=== PATIENT | female | born 1965 | race Caucasian/White ===

== ENCOUNTER 2018-12-07 21:36 | Inpatient (IN) | payer MEDICAID, SELFPAY ==
[~2018-12-07] VITALS: Ht 160 cm; Wt 99.9 kg
[2018-12-07] MEDS ORDERED: OMNIPAQUE 350 MG/ML, 100ML BOTTLE ONE (22:00)
[2018-12-07 22:21] LABS: BASOPHILS % (AUTO) 0 % (0-1); EOSINOPHILS # (AUTO) 0.05 x10^3/uL (0-0.4); EOSINOPHILS % (AUTO) 1 % (1-7); LYMPHOCYTES # (AUTO) 1.64 x10^3/uL (1-3.4); LYMPHOCYTES % (AUTO) 18 % (22-44); MD NO; MEAN CORPUSCULAR HGB CONC 33.5 g/dL (32.4-35.8); MEAN CORPUSCULAR VOLUME 86.6 fL (80-100); MEAN PLATELET VOLUME 7.8 fL (7.4-10.4); MONOCYTES # (AUTO) 0.74 x10^3/uL (0.2-0.8); MONOCYTES % (AUTO) 8 % (2-9); NEUTROPHILS # (AUTO) 6.52 x10^3/uL (1.8-6.8); NEUTROPHILS % (AUTO) 73 % (42-75); PLATELET COUNT 342 x10^3/uL (130-400); RED CELL DISTRIBUTION WIDTH 19.2 % (9.6-15.2)
[2018-12-07 22:32] LABS: ALANINE AMINOTRANSFERASE 28 U/L (12-78); ALBUMIN 2.7 g/dL (3.4-5.0); ANION GAP 12 mmol/L (5-15); CALCIUM 8.6 mg/dL (8.5-10.1); CHLORIDE 103 mmol/L (98-107); CREATININE 0.61 mg/dL (0.55-1.02)
[2018-12-07 22:37] LABS: ALKALINE PHOSPHATASE 113 U/L (45-117); BILIRUBIN,TOTAL 0.5 mg/dL (0.2-1.0); TOTAL PROTEIN 7.1 g/dL (6.4-8.2); TROPONIN I < 0.015 ng/mL (0.000-0.045)
--- NOTE | 2018-12-07 22:52 | NUR ---
PT IN CT.
[2018-12-08] MEDS ORDERED: ONDANSETRON 2MG/ML, 2ML IVPush PRN ×2 (00:30)
[2018-12-08] MEDS: HEPARIN 5,000 UNITS/ML, 1ML SQ SCH ×3 (00:30→16:08)
[2018-12-08] MEDS ORDERED: KETOROLAC 30 MG/1 ML IV PRN (00:30)
[2018-12-08] MEDS ORDERED: HYDROmorphone 1 MG/ML, 1ML IVPush PRN (00:30)
[2018-12-08] MEDS ORDERED: POLYETHYLENE GLYCOL 17 GM PACKET PO PRN (00:30)
[2018-12-08] MEDS ORDERED: HYDROmorphone 2 MG/ML, 1ML IVPush PRN (00:30)
[2018-12-08] MEDS ORDERED: BISACODYL 10 MG SUPP PR PRN (00:30)
--- NOTE | 2018-12-08 00:39 | NUR ---
REPORT GIVEN TO NILDA VALLADARES
[2018-12-08 00:52] VITALS: BP 105/73
[2018-12-08 01:00] VITALS: BP 105/73
[2018-12-08] MEDS: NICOTINE 7 MG/24 HR PATCH.TD24 TD SCH (01:33)
[2018-12-08] MEDS ORDERED: TOPI50TA8 PO (03:05)
[2018-12-08] MEDS ORDERED: MEMA10TA20 PO (03:06)
[2018-12-08] MEDS ORDERED: ASPI1TAB31 PO (03:08)
[2018-12-08 07:38] VITALS: BP 97/64
[2018-12-08] MEDS: SENNA/DOCUSATE TABLET PO SCH (09:00)
[2018-12-08] MEDS: ACETAMINOPHEN 325 MG TABLET PO PRN ×2 (09:13→19:57)
[2018-12-08] MEDS: SODIUM CHLORIDE FLUSH 10ML SYR IVF SCH ×2 (09:14→19:57)
[2018-12-08 13:00] VITALS: BP 94/63
[2018-12-08 18:40] VITALS: BP 97/67
[2018-12-08] MEDS: MEMANTINE 10MG TABLET PO SCH ×2 (19:57→21:00)
[2018-12-08] MEDS: TOPIRAMATE 25 MG TABLET PO SCH ×2 (19:57→21:00)
[2018-12-09 00:05] VITALS: BP 96/53
[2018-12-09 00:07] VITALS: BP 118/80
[2018-12-09] MEDS: HEPARIN 5,000 UNITS/ML, 1ML SQ SCH ×4 (00:30→21:32)
[2018-12-09] MEDS: NICOTINE 7 MG/24 HR PATCH.TD24 TD SCH (00:42)
[2018-12-09] MEDS: ACETAMINOPHEN 325 MG TABLET PO PRN ×3 (00:42→21:48)
[2018-12-09] MEDS: TOPIRAMATE 25 MG TABLET PO SCH ×2 (08:23→21:31)
[2018-12-09] MEDS: MEMANTINE 10MG TABLET PO SCH ×2 (08:23→21:31)
[2018-12-09] MEDS: SODIUM CHLORIDE FLUSH 10ML SYR IVF SCH ×2 (08:24→21:00)
[2018-12-09] MEDS: SENNA/DOCUSATE TABLET PO SCH (08:24)
[2018-12-09] MEDS: FENTANYL 12 MCG PATCH TD SCH (11:06)
[2018-12-09 13:41] VITALS: BP 103/63
[2018-12-09 18:52] VITALS: BP 123/80
[2018-12-10] MEDS: NICOTINE 7 MG/24 HR PATCH.TD24 TD SCH (00:40)
[2018-12-10 04:21] VITALS: BP 114/74
[2018-12-10 05:13] LABS: CREATININE 0.58 mg/dL (0.55-1.02)
[2018-12-10] MEDS: HEPARIN 5,000 UNITS/ML, 1ML SQ SCH ×2 (09:06→16:16)
[2018-12-10] MEDS: SENNA/DOCUSATE TABLET PO SCH (09:10)
[2018-12-10] MEDS: SODIUM CHLORIDE FLUSH 10ML SYR IVF SCH ×2 (09:10→20:25)
[2018-12-10 09:18] VITALS: BP 113/81
[2018-12-10] MEDS: MEMANTINE 10MG TABLET PO SCH ×2 (09:23→20:21)
[2018-12-10] MEDS: ACETAMINOPHEN 325 MG TABLET PO PRN ×2 (09:25→20:21)
[2018-12-10] MEDS: TOPIRAMATE 25 MG TABLET PO SCH ×2 (09:25→20:21)
[2018-12-10] MEDS ORDERED: LIDOCAINE 1%, 20ML ONE ×2 (11:10→11:12)
[2018-12-10] MEDS ORDERED: LIDOCAINE 1%-EPI 1:100K, 30ML ONE (11:10)
[2018-12-10] MEDS ORDERED: SODIUM BICARBONATE 4.0%, 5ML ONE (11:10)
[2018-12-10 14:22] VITALS: BP 118/78
[2018-12-10 18:53] VITALS: BP 104/67
[2018-12-11] MEDS: HEPARIN 5,000 UNITS/ML, 1ML SQ SCH ×3 (00:30→16:47)
[2018-12-11] MEDS: NICOTINE 7 MG/24 HR PATCH.TD24 TD SCH (01:07)
[2018-12-11 03:14] VITALS: BP 107/71
[2018-12-11 05:41] LABS: BASOPHILS # (AUTO) 0.01 x10^3/uL (0-0.1); BASOPHILS % (AUTO) 0 % (0-1); EOSINOPHILS # (AUTO) 0.05 x10^3/uL (0-0.4); EOSINOPHILS % (AUTO) 1 % (1-7); LYMPHOCYTES % (AUTO) 17 % (22-44); MD NO; MEAN CORPUSCULAR HEMOGLOBIN 28.9 pg (27.0-34.8); MEAN CORPUSCULAR HGB CONC 33.2 g/dL (32.4-35.8); MEAN CORPUSCULAR VOLUME 87.1 fL (80-100); MEAN PLATELET VOLUME 7.8 fL (7.4-10.4); MONOCYTES # (AUTO) 0.59 x10^3/uL (0.2-0.8); MONOCYTES % (AUTO) 8 % (2-9); NEUTROPHILS # (AUTO) 5.49 x10^3/uL (1.8-6.8); NEUTROPHILS % (AUTO) 74 % (42-75); PLATELET COUNT 315 x10^3/uL (130-400); RED BLOOD COUNT 3.92 x10^6/uL (3.82-5.3); RED CELL DISTRIBUTION WIDTH 19.4 % (9.6-15.2)
[2018-12-11 05:49] LABS: ALANINE AMINOTRANSFERASE 23 U/L (12-78); ALBUMIN 2.5 g/dL (3.4-5.0); ANION GAP 8 mmol/L (5-15); CALCIUM 8.7 mg/dL (8.5-10.1); CHLORIDE 102 mmol/L (98-107)
[2018-12-11 05:54] LABS: ALKALINE PHOSPHATASE 127 U/L (45-117); BILIRUBIN,TOTAL 0.5 mg/dL (0.2-1.0); CREATININE 0.63 mg/dL (0.55-1.02); TOTAL PROTEIN 6.8 g/dL (6.4-8.2)
[2018-12-11 07:10] VITALS: BP 105/62
[2018-12-11] MEDS: TOPIRAMATE 25 MG TABLET PO SCH ×2 (09:00→20:59)
[2018-12-11] MEDS: MEMANTINE 10MG TABLET PO SCH ×2 (09:00→20:59)
[2018-12-11] MEDS: SODIUM CHLORIDE FLUSH 10ML SYR IVF SCH ×2 (09:00→21:00)
[2018-12-11] MEDS: SENNA/DOCUSATE TABLET PO SCH (09:00)
[2018-12-11] MEDS ORDERED: DIPHENHYDRAMINE 50 MG/ML, 1ML IVPush ONE (11:00)
[2018-12-11] MEDS ORDERED: DEXAMETHASONE IVPB ONE (11:00)
[2018-12-11] MEDS ORDERED: SODIUM CHLORIDE 0.9% IVPB ONE (11:00)
[2018-12-11] MEDS ORDERED: ACETAMINOPHEN 325 MG TABLET PO ONE (11:00)
[2018-12-11] MEDS ORDERED: DIPHENHYDRAMINE 50 MG/ML, 1ML IVPush PRN (11:00)
[2018-12-11] MEDS ORDERED: ONDANSETRON IVPB ONE (11:00)
[2018-12-11] MEDS ORDERED: FAMOTIDINE 20 MG/2 ML IVPush ONE (11:00)
[2018-12-11] MEDS ORDERED: SODIUM CHLORIDE 0.9% IV ONE ×2 (11:30→12:30)
[2018-12-11] MEDS ORDERED: CARBOPLATIN IV ONE (11:30)
[2018-12-11] MEDS ORDERED: PACLITAXEL IV ONE (12:30)
[2018-12-11] MEDS ORDERED: FILTER 0.22 MICRON IV ONE (12:30)
[2018-12-11 15:47] VITALS: BP 115/78
[2018-12-11 18:55] VITALS: BP 111/68
[2018-12-11] MEDS: ACETAMINOPHEN 325 MG TABLET PO PRN (20:59)
[2018-12-12] MEDS: HEPARIN 5,000 UNITS/ML, 1ML SQ SCH ×3 (00:30→15:40)
[2018-12-12 04:07] VITALS: BP 109/68
[2018-12-12 05:13] LABS: ALBUMIN 2.4 g/dL (3.4-5.0); ANION GAP 7 mmol/L (5-15); CALCIUM 8.3 mg/dL (8.5-10.1); CHLORIDE 105 mmol/L (98-107)
[2018-12-12 05:14] LABS: CREATININE 0.59 mg/dL (0.55-1.02)
[2018-12-12] MEDS: NICOTINE 7 MG/24 HR PATCH.TD24 TD SCH (05:14)
[2018-12-12] MEDS ORDERED: POTASSIUM CHLORIDE 10% 20 MEQ/15 ML UDC PO ONE (07:00)
[2018-12-12 07:40] VITALS: BP 122/87
[2018-12-12] MEDS: MEMANTINE 10MG TABLET PO SCH ×2 (08:23→21:04)
[2018-12-12] MEDS: TOPIRAMATE 25 MG TABLET PO SCH ×2 (08:23→21:04)
[2018-12-12] MEDS: SODIUM CHLORIDE FLUSH 10ML SYR IVF SCH ×2 (08:23→21:00)
[2018-12-12] MEDS: SENNA/DOCUSATE TABLET PO SCH (08:23)
[2018-12-12] MEDS ORDERED: GABAPENTIN 100 MG CAPSULE PO PRN (10:30)
[2018-12-12] MEDS: FENTANYL 12 MCG PATCH TD SCH (10:43)
[2018-12-12] MEDS ORDERED: FENTANYL REMOVE PATCH NOTE XX SCH (11:00)
[2018-12-12 13:43] VITALS: BP 125/64
[2018-12-12] MEDS: ACETAMINOPHEN 325 MG TABLET PO PRN (14:29)
[2018-12-12 19:27] VITALS: BP 103/68
[2018-12-13] MEDS: HEPARIN 5,000 UNITS/ML, 1ML SQ SCH ×3 (00:05→16:30)
[2018-12-13 00:13] VITALS: BP 96/58
[2018-12-13] MEDS: NICOTINE 7 MG/24 HR PATCH.TD24 TD SCH (04:56)
[2018-12-13 05:06] LABS: BASOPHILS # (AUTO) 0.01 x10^3/uL (0-0.1); BASOPHILS % (AUTO) 0 % (0-1); EOSINOPHILS # (AUTO) 0.02 x10^3/uL (0-0.4); EOSINOPHILS % (AUTO) 0 % (1-7); LYMPHOCYTES # (AUTO) 0.96 x10^3/uL (1-3.4); LYMPHOCYTES % (AUTO) 13 % (22-44); MD NO; MEAN CORPUSCULAR HGB CONC 33.4 g/dL (32.4-35.8); MEAN CORPUSCULAR VOLUME 86.9 fL (80-100); MEAN PLATELET VOLUME 8.4 fL (7.4-10.4); MONOCYTES # (AUTO) 0.18 x10^3/uL (0.2-0.8); MONOCYTES % (AUTO) 2 % (2-9); NEUTROPHILS # (AUTO) 6.56 x10^3/uL (1.8-6.8); NEUTROPHILS % (AUTO) 85 % (42-75); PLATELET COUNT 296 x10^3/uL (130-400); RED BLOOD COUNT 3.73 x10^6/uL (3.82-5.3); RED CELL DISTRIBUTION WIDTH 19.1 % (9.6-15.2)
[2018-12-13 05:16] LABS: CALCIUM 8.4 mg/dL (8.5-10.1); CHLORIDE 103 mmol/L (98-107)
[2018-12-13 05:20] LABS: ALBUMIN 2.4 g/dL (3.4-5.0); ANION GAP 6 mmol/L (5-15); CREATININE 0.57 mg/dL (0.55-1.02)
[2018-12-13 06:50] VITALS: BP 110/72
[2018-12-13] MEDS: ACETAMINOPHEN 325 MG TABLET PO PRN ×2 (08:32→17:57)
[2018-12-13] MEDS: MEMANTINE 10MG TABLET PO SCH (08:32)
[2018-12-13] MEDS: TOPIRAMATE 25 MG TABLET PO SCH (08:32)
[2018-12-13] MEDS: SODIUM CHLORIDE FLUSH 10ML SYR IVF SCH (08:33)
[2018-12-13] MEDS: SENNA/DOCUSATE TABLET PO SCH (08:38)
[2018-12-13] MEDS ORDERED: FENT1PAT74 TD (10:46)
[2018-12-13] MEDS ORDERED: ACET325T14 PO (10:46)
[2018-12-13] MEDS ORDERED: POLY17PO5 PO (10:46)
[2018-12-13] MEDS ORDERED: NICO-485 TD (10:46)
[2018-12-13] MEDS ORDERED: GABA-826 PO (10:46)
[2018-12-13 13:45] VITALS: BP 103/6
[2018-12-13 18:53] VITALS: BP 95/63
== END 2018-12-13 20:14 | disposition home health service (06) | DRG 597 ==
LOC: ED 23:40 → EDIP 12-08 00:08 → 3NE 12-08 01:24 → 3NW 12-08 07:36
PROVIDERS: ADMIT Hospitalist; ATTEND Hospitalist
DX: C50.911 Malignant neoplasm of unspecified site of right female breast (principal); J96.01 Acute respiratory failure with hypoxia; C78.00 Secondary malignant neoplasm of unspecified lung; C78.7 Secondary malignant neoplasm of liver and intrahepatic bile duct; C79.31 Secondary malignant neoplasm of brain; C79.51 Secondary malignant neoplasm of bone; C79.72 Secondary malignant neoplasm of left adrenal gland; E44.0 Moderate protein-calorie malnutrition; E66.01 Morbid (severe) obesity due to excess calories; F17.210 Nicotine dependence, cigarettes, uncomplicated; G89.29 Other chronic pain; K08.89 Other specified disorders of teeth and supporting structures; R62.7 Adult failure to thrive; Z66 Do not resuscitate; Z68.39 Body mass index [BMI] 39.0-39.9, adult; Z90.711 Acquired absence of uterus with remaining cervical stump; Z51.5 Encounter for palliative care
CPT/HCPCS: 36415; 99285; J3490; 38505; 71275; 76942; 80048; 80053; 82040; 82378; 82565; 83880; 84484; 85025; 86300; 87040; 93005; G0378; J1100; J2405; J9045; J9267; Q9967; J1200; J7040; J7050